=== PATIENT | male | born 1990 | race American Indian/Alaskan Native ===

== ENCOUNTER 2017-01-19 18:27 | Emergency (ER) | payer OTHER ==
[2017-01-19 18:42] VITALS: BP 124/85
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
[2017-01-19] MEDS ORDERED: FLEXERIL PO ONE (21:02)
[2017-01-19] MEDS ORDERED: NORCO 5/325 PO ONE (21:02)
== END 2017-01-19 21:34 | disposition home or self-care (01) ==
LOC: ED 18:27
DX: M79.1 Myalgia (principal); R51 Headache; M25.562 Pain in left knee; M54.9 Dorsalgia, unspecified; V49.49XA Driver injured in collision with other motor vehicles in traffic accident, initial encounter; Y93.9 Activity, unspecified; Y92.9 Unspecified place or not applicable; Y99.9 Unspecified external cause status
CPT/HCPCS: 99282